=== PATIENT | female | born 1950 | race Caucasian/White ===

== ENCOUNTER → 2024-07-06 09:01 | Outpatient (REF) | payer MEDICARE, SELFPAY | LOC: HWRAD 09:01 | PROVIDERS: ATTENDING PHYSICIAN Internal Medicine | DX: K55.1 Chronic vascular disorders of intestine (principal) | CPT/HCPCS: 76700; 93975 ==

== ENCOUNTER → 2024-08-20 09:06 | Outpatient (REF) | payer MEDICARE, SELFPAY | LOC: RCS 09:06 | PROVIDERS: ATTENDING PHYSICIAN Internal Medicine | DX: L10.0 Pemphigus vulgaris (principal); K55.1 Chronic vascular disorders of intestine | CPT/HCPCS: 93306 ==